=== PATIENT | male | born 1975 ===

== ENCOUNTER 2017-07-31 11:06 | Emergency (ER) | payer OTHER, BC ==
--- NOTE | 2017-07-31 11:29 | EDM.PDOC ---
ED HPI GENERAL MEDICAL PROBLEM - General Chief Complaint: General Stated Complaint: FELL AND HIT RT SIDE RIBS IN METAL DIKE Time Seen by Provider: 07/31/17 11:22 Source of Information: Reports: Patient History Limitations: Reports: No Limitations - History of Present Illness INITIAL COMMENTS - FREE TEXT/NARRATIVE: HISTORY AND PHYSICAL: History of present illness: Patient is a 42-year-old male who presents to the emergency room today with complaints of right-sided rib pain. Patient slipped and fell on a metal rim hitting the right side of his chest wall. This occurred at approximately 12:30 AM this morning while at work. He states that the "wind Knocked out of me" but continued to work. This morning he noted some bruising and increased pain with movement, coughing, deep breathing. Denies hitting his head or any loss of consciousness. Denies any hemoptysis, fever, chills, shortness of breath or chest pain. Review of systems: As per history of present illness and below otherwise all systems reviewed and negative. Past medical history: As per history of present illness and as reviewed below otherwise noncontributory. Surgical history: As per history of present illness and as reviewed below otherwise noncontributory. Social history: No reported history of drug or alcohol abuse. Family history: As per history of present illness and as reviewed below otherwise noncontributory. Physical exam: Gen.: Well-developed and well-nourished 42-year-old male. Appears nontoxic and in no acute distress. Alert and oriented. HEENT: Atraumatic, normocephalic, pupils reactive, negative for conjunctival pallor or scleral icterus, mucous membranes moist, throat clear, neck supple, nontender, trachea midline. Lungs: Clear to auscultation, breath sounds equal bilaterally, chest nontender. Heart: S1S2, regular rate and rhythm. Abdomen: Soft, nondistended, nontender. Negative for masses or hepatosplenomegaly. Negative for costovertebral tenderness. Pelvis: Stable nontender. Genitourinary: Deferred. Rectal: Deferred. Extremities: Moves all extremities per self, full range of motion, negative for cords or calf pain. Neurovascular unremarkable. Skin: Mild bruising noted to the mid axillary line to the distal ribs on the right side. No soft tissue swelling noted. Mild tenderness to palpation. Neuro: Awake, alert, oriented. Cranial nerves II through XII unremarkable. Cerebellum unremarkable. Motor and sensory unremarkable throughout. Exam nonfocal. Patient reports that it feels like a muscle spasm to the right side of his chest. I will get an x-ray with rib detail. Patient does have a ride with him, his . We'll give him Toradol and Norflex at this time for comfort. Patient declined the IM injections. Prescription for Cataflam, 30 tablets -no refills. Flexeril, 15 tablets -no refills. [place] 5/325, 15 tablets -no refills. Diagnostics: Chest x-ray with right rib detail Therapeutics: Toradol and Norflex IM Impression: Chest wall contusion Plan: 1. Please take the Cataflam (#30) as directed. This is an anti-inflammatory so do not take any additional NSAIDs such as, Aleve or ibuprofen. May want to take this with food. Flexeril (#15) has also been prescribed, this is a muscle relaxer. This medication may cause drowsiness so do not take it while driving or needing to be functioning at work. If you need additional coverage I have given you a limited amount of [place] (#15), he may take 1 tab every 4-6 hours as needed. This is her narcotics so do not take it when driving or working. 2. Apply ice for the first 24 hours. You may then apply gentle heat to the area. 3. Do not avoid coughing or deep breathing as this could lead to a pneumonia. Splinting the area will help alleviate this discomfort. 4. Follow-up with your primary care provider in the next 1-2 days. Return to the ED as needed and as discussed. Definitive disposition and diagnosis as appropriate pending reevaluation and review of above. Onset: Today Duration: Hour(s): Location: Reports: Chest Right Upper Chest Pain Score (Numeric/FACES): 2 ED ROS GENERAL - Review of Systems Review Of Systems: ROS reveals no pertinent complaints other than HPI. ED EXAM, GENERAL - Physical Exam Exam: See Below (See dictation) Course - Vital Signs Last Recorded V/S: Last Vital Signs Temp 98.0 F 07/31/17 11:26 Pulse 66 07/31/17 11:26 Resp 20 07/31/17 11:26 BP 126/73 07/31/17 11:26 Pulse Ox 97 07/31/17 11:26 - Orders/Labs/Meds Orders: Active Orders 24 hr Category Date Time Status Ribs 2V wo Chest Rt [CR] Stat Exams 07/31/17 11:22 Taken Orphenadrine [Norflex] Med 07/31/17 11:30 Active 60 mg IM Q12H Medication Orders Orphenadrine Citrate (Norflex) 60 mg IM Q12H VINCE Last Admin: 07/31/17 11:58 Dose: Not Given Meds: Medications Generic Name Dose Route Start Last Admin Trade Name Freq PRN Reason Stop Dose Admin Orphenadrine Citrate 60 mg 07/31/17 11:30 07/31/17 11:58 Norflex IM Not Given Q12H VINCE Discontinued Medications Generic Name Dose Route Start Last Admin Trade Name Freq PRN Reason Stop Dose Admin Ketorolac Tromethamine 60 mg 07/31/17 11:30 07/31/17 11:58 Toradol IM 07/31/17 11:31 Not Given ONETIME ONE Departure - Departure Time of Disposition: 12:45 Disposition: Home, Self-Care 01 Clinical Impression: Chest wall contusion Qualifiers: Encounter type: initial encounter Laterality: right Qualified Code(s): S20.211A - Contusion of right front wall of thorax, initial encounter - Discharge Information Referrals: Fredis Barbosa MD [Primary Care Provider] - Forms: ED Department Discharge Additional Instructions: My general discharge The following information is given to patients seen in the emergency department who are being discharged to home. This information is to outline your options for follow-up care. We provide all patients seen in our emergency department with a follow-up referral. The need for follow-up, as well as the timing and circumstances, are variable depending upon the specifics of your emergency department visit. If you don't have a primary care physician on staff, we will provide you with a referral. We always advise you to contact your personal physician following an emergency department visit to inform them of the circumstance of the visit and for follow-up with them and/or the need for any referrals to a consulting specialist. The emergency department will also refer you to a specialist when appropriate. This referral assures that you have the opportunity for follow-up care with a specialist. All of these measure are taken in an effort to provide you with optimal care, which includes your follow-up. Under all circumstances we always encourage you to contact your private physician who remains a resource for coordinating your care. When calling for follow-up care, please make the office aware that this follow-up is from your recent emergency room visit. If for any reason you are refused follow-up, please contact the [facility] Emergency Department at and asked to speak to the emergency department charge nurse. [facility] [place] [phone]. Please take the Cataflam as directed. This is an anti-inflammatory so do not take any additional NSAIDs such as, Aleve or ibuprofen. May want to take this with food. Flexeril has also been prescribed, this is a muscle relaxer. This medication may cause drowsiness so do not take it while driving or needing to be functioning at work. If you need additional coverage I have given you a limited amount of [place], he may take 1 tab every 4-6 hours as needed. This is her narcotics so do not take it when driving or working. 2. Apply ice for the first 24 hours. You may then apply gentle heat to the area. 3. Do not avoid coughing or deep breathing as this could lead to a pneumonia. Splinting the area will help alleviate this discomfort. 4. Follow-up with your primary care provider in the next 1-2 days. Return to the ED as needed and as discussed. - My Orders Last 24 Hours: My Active Orders 07/31/17 11:22 Ribs 2V wo Chest Rt [CR] Stat 07/31/17 11:30 Orphenadrine [Norflex] 60 mg IM Q12H - Assessment/Plan Last 24 Hours: My Active Orders 07/31/17 11:22 Ribs 2V wo Chest Rt [CR] Stat 07/31/17 11:30 Orphenadrine [Norflex] 60 mg IM Q12H
[2017-07-31] MEDS ORDERED: Ketorolac 60 MG/2 ML SDV IM ONE (11:30)
--- NOTE | 2017-08-02 14:00 | CR ---
EXAM DATE: 07/31/17 PATIENT'S AGE: 42 Patient: NAEL ANTONIO Facility: [place], [place] Site . Site : [id number] Study: XRay Chest Right ribs [id number]/16/2017 11:49:21 AM Ordering Physician: Doctor Moore Final Report: Right rib detail. 2 VIEWS INDICATION: Pain. IMPRESSION: 8th posterior rib has a subtle angulation of the cortex on series 2. There is no obvious radiolucent fracture line but correlation with localized point tenderness in this region is suggested. No additional fractures or osseous abnormalities. Dictated by Nick Daly MD @ Jul 31 2017 12:15PM (Electronic Signature) Report Signed by Proxy. JOSE R
== END 2017-07-31 13:07 | disposition home or self-care (01) ==
LOC: MW.ED 11:06
DX: S20.211A Contusion of right front wall of thorax, initial encounter (principal); W01.118A Fall on same level from slipping, tripping and stumbling with subsequent striking against other sharp object, initial encounter
CPT/HCPCS: 71100-26-RT; 71100-RT; 99283; 99284